=== PATIENT | male | born 1960 | race Caucasian/White ===

== ENCOUNTER 2017-12-05 11:35 | Emergency (ER) | payer MEDICARE, OTHER ==
[~2017-12-05] VITALS: Ht 198.1 cm; Wt 123.4 kg
[2017-12-05 11:35] VITALS: BP 141/91
[2017-12-05 12:11] LABS: BASO # 0.1 x10^3/uL (0.0-0.2); BASO % 1 % (0-3); EOS # 0.1 x10^3/uL (0.0-0.7); EOS % 2 % (0-3); HEMATOCRIT 41.9 % (39.0-53.0); HEMOGLOBIN 14.2 g/dL (13.0-17.5); LYMPH # 2.2 x10^3/uL (1.0-4.8); LYMPH % 26 % (24-48); MEAN CORPUSCULAR HEMOGLOBIN 29 pg (25-35); MEAN CORPUSCULAR HGB CONC 34 g/dL (31-37); MEAN CORPUSCULAR VOLUME 85 fL (79-100); MONO # 0.6 x10^3/uL (0.0-1.1); MONO % 8 % (0-9); NEUT # 5.3 x10^3uL (1.8-7.7); NEUT % 63 % (31-73); PLATELET COUNT 178 x10^3/uL (140-400); RED BLOOD COUNT 4.91 x10^6/uL (4.30-5.70); RED CELL DISTRIBUTION WIDTH 13.8 % (11.5-14.5); WHITE BLOOD COUNT 8.3 x10^3/uL (4.0-11.0)
[2017-12-05 12:18] LABS: ALBUMIN 3.4 g/dL (3.4-5.0); ALBUMIN/GLOBULIN RATIO 0.9 (1.0-1.7); CREATININE 0.9 mg/dL (0.7-1.3); GFR 87.6; TOTAL BILIRUBIN 0.2 mg/dL (0.2-1.0)
--- NOTE | 2017-12-05 12:20 | RAD ---
CT head without contrast 12/05/2017 Clinical indication: Syncope, head trauma. Comparison: None. Technique: Multiple CT images of the head were obtained without contrast according to standard protocol. Findings: No acute intracranial hemorrhage or extra-axial fluid collection. The ventricles and subarachnoid spaces are normal in size and configuration for age. No midline shift. The basal cisterns are patent. The visualized mastoid air cells are well aerated. There is an inferior left maxillary sinus mucosal retention cyst. Impression: No acute intracranial hemorrhage. PQRS Compliance Statement: One or more of the following individualized dose reduction techniques were utilized for this examination: 1. Automated exposure control 2. Adjustment of the mA and/or kV according to patient size 3. Use of iterative reconstruction technique
--- NOTE | 2017-12-05 12:24 | RAD ---
Portable chest, 12/05/2017: History: Syncope The heart size and pulmonary vascularity are normal. No pulmonary infiltrates are seen. There is no evidence of pleural fluid. IMPRESSION: No acute cardiopulmonary abnormality is detected.
--- NOTE | 2017-12-05 12:47 | EKG ---
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
[2017-12-05] MEDS: IV NORMAL SALINE 1,000ML 1,000 ML IV ONE (12:52)
[2017-12-05 13:40] LABS: BILIRUBIN,URINE NEG (NEG); CLARITY,URINE CLEAR; COLOR,URINE AMBER; GLUCOSE,URINE NEG (NEG)
[2017-12-05 13:41] LABS: AMPHETAMINE/METHAMPHETAMINE NEG (NEG); BACTERIA,URINE 0 /HPF (0-FEW); BARBITURATES POS (NEG); BENZODIAZEPINES NEG (NEG); CANNABINOIDS NEG (NEG); COCAINE NEG (NEG); METHADONE NEG (NEG); NITRITE,URINE NEG (NEG); OPIATES NEG (NEG); PHENCYCLIDINE NEG (NEG); SQUAMOUS EPITHELIAL CELL,UR OCC /LPF; UROBILINOGEN,URINE 0.2 mg/dL (0.2 mg/dL)
[2017-12-05] MEDS ORDERED: IOHEXOL 300 MG/ML 75 ML VIAL. ONE (14:39)
[2017-12-05] MEDS ORDERED: CONTRAST GIVEN MC PRN (14:45)
[2017-12-05] MEDS: IOHEXOL 300 MG/ML 75 ML VIAL. IV ONE (14:48)
--- NOTE | 2017-12-05 14:48 | RAD ---
CT head without contrast 12/05/2017 Clinical indication: Right upper extremity and right lower sternum the weakness. Comparison: CT head 12/05/2017 Technique: Multiple CT images of the head were obtained without contrast. PQRS Compliance Statement: One or more of the following individualized dose reduction techniques were utilized for this examination: 1. Automated exposure control 2. Adjustment of the mA and/or kV according to patient size 3. Use of iterative reconstruction technique Findings: No acute intracranial hemorrhage or extra-axial fluid collection. No midline shift. The andrade-white matter interfaces are maintained. The ventricles and subarachnoid spaces are normal in size and configuration. The visualized mastoid air cells and paranasal sinuses are well aerated. Impression: No acute intracranial hemorrhage or mass effect. These results were discussed with the emergency service by telephone at 2:45 PM 12/05/[address] Kavon Aguilera
--- NOTE | 2017-12-05 14:55 | PHYS DOC ---
Past History Past Medical History: Cancer Past Surgical History: Other Alcohol Use: None Drug Use: None Adult General Chief Complaint Chief Complaint: SYNCOPE HPI HPI Patient is a 56-year-old gentleman who has a history significant for chronic lower back pain, resting tremor, constipation, hyperlipidemia, BPH, COPD, tobacco abuse, depression, PTSD, vitamin D deficiency, who is status post a lumbar laminectomy secondary to lumbar spinal stenosis prior to June 13, 2017, presents to the ER today from [facility] after having a witnessed syncopal episode. Patient reports that while he was walking through [facility] he started to feel weak and dizzy and he knelt down to the ground started feeling more dizzy and then fell over with positive loss of consciousness to was witnessed by people at [facility]. Patient reports she's had no recent fevers shakes chills nausea vomiting diarrhea area patient reports he been eating and drinking well. Patient denies any chest pain or shortness of breath. Patient reports that he's had intermittent episodes of generalized weakness. Patient reports that he walks with a wrist pain secondary to pain and difficulty ambulating secondary to his chronic lower back pain. Patient reports baseline he is able to actively without any problems and able to drive himself to [facility]. Patient's initial evaluation the ER was unremarkable. Patient was alert awake oriented 3. Patient's neurological exam was nonfocal. Patient had 5 out of 5 upper and lower extremity strength. Patient had 5 out of 5 bilateral hand grasp , wrist flexion and extension, elbow flexion and extension, shoulder flexion and extension. Patient has 5 out of 5 hip knee and ankle flexion and extension bilaterally equal. Patient does report that he has intermittent episodes of weakness however upon evaluating the patient during his initial evaluation the patient not exhibiting any signs or symptoms of be consistent with weakness. Patient's ER workup is unremarkable with a normal CT scan of his head, normal CBC, CMP, EKG, chest x-ray. After long discussion with the patient the plan was to discharge him to home and have him follow-up with primary care physician for his syncopal episode. It was unclear whether or not the patient was dehydrated which caused him to feel dizzy get on his knees and passed out. Patient be given 1 L fluid and felt better and was plan to be discharged home. I had asked the patient to locate a family member to come pick him up so that we can discuss with him his follow-up. During this time. The patient got up grab his close and became fully dressed. Patient was able to put his shirt she was socks and pants on without difficulty. I went in to reevaluate the patient to see if we can watch him ambulate and he was unable to ambulate and at this time he reported that he has complete weakness loss of movement to his right upper and right lower extremity and feels like his speech is slurred. Patient's exam and presentation in the ED visit has remained inconsistent with periodic episodes of some motor function to his right upper extremity however the majority the time his right upper extremity did remain flaccid. He does withdraw slightly to painful stimuli to his right upper extremity. Patient's right lower extremity has remained flaccid and with inability to move. Patient does withdraw slightly to pain to his right lower extremity. Patient is otherwise alert awake and oriented 3. Patient is appropriate. Patient has no difficulty with word finding although his speech was seen more garbled than usual. Patient's cranial nerves to 12 intact. Patient has equal smile although when he relaxes he does have a right facial droop. Patient's tongue is midline. Patient's pupils are equally round and reactive to light. Extraocular motions were intact 1518: After discussion with [facility] in neurology and discussion with Dr. Zayas and Dr. palomares, it was recommended that we proceed with TPA given the patient's deficit. Patient has been accepted to transfer to [facility]. After discussion with Dr. Zayas I went to reevaluate the patient again and once again the patient now has complete flaccidity of his right upper extremity. Patient has waxing and waning of his symptoms which are extremely concerning. I had a long discussion with the patient regarding risks and benefits of TPA, he understands the benefit of TPA with improving the deficits from a stroke. Patient understands risks of TPA which includes hemorrhage, bleed , intracranial bleeding with worsening symptoms and possible , worsening strokes, worsening symptoms. Patient is currently agreeable to TPA. I have been discussed with the patient regarding any mental health issues in the past. Patient reports he does have a history of anger management which she just recently went to a course for. Patient denies any prior to her symptoms in the past. Review of systems: Constitutional: Denies fever or chills Eyes: Denies change in visual acuity, redness, or eye pain HENT: Denies nasal congestion or sore throat Respiratory: Denies cough or shortness of breath All other systems were reviewed and found to be within normal limits, except as documented in this note. Physical exam: Constitutional: Well developed, well nourished, no acute distress, non-toxic appearance. HENT: Normocephalic, atraumatic, bilateral external ears normal, nose normal. Eyes: PERRLA, EOMI, conjunctiva normal, no discharge. Neck: Normal range of motion, no tenderness, supple, no stridor. Cardiovascular: Heart rate regular rhythm, Lungs & Thorax: Bilateral breath sounds clear to auscultation Abdomen: No abdominal distention. Skin: Warm, dry, no erythema, no rash. Back: Normal spinal curvature Extremities: No tenderness, no cyanosis, no clubbing, ROM intact, no edema. Neurologic: Alert and oriented X 3, see above Psychologic: Affect normal, judgement normal, mood normal. Patient's ER physical exam was most remarkable: Waxing and waning episodes of right-sided weakness with slurring of speech waxes and wanes as well. EKG as interpreted by ER physician reveals: Normal sinus rhythm with nonspecific ST-T wave abnormalities. No evidence of STEMI. Chest x-ray as interpreted by ER physician reveals: No infiltrates or effusions. CT scan of the head 2 reveals no acute bleed pathology. Labs reviewed: Assessment and plan: 1. Syncope: Etiology unclear. Patient's ER workup is been unremarkable. Patient 's cardiac enzymes are negative CT scan did not reveal any acute pathology and EKG was normal. Patient normal CBC, CMP, troponin. 2. Acute stroke: Patient with waxing and waning episodes of weakness to his right upper and right lower extremities.. Although patient has waxing and waning symptoms, given the severity of symptoms when they do occur, after consultation with neurology from [facility], Dr. Zayas, it was felt that the patient would benefit from initiating TPA here and transferred to [facility] for further evaluation. Critical care time of 35 minutes reutilized and treatment and management of acute stroke symptoms and administration of of TPA. Current Medications Current Medications Current Medications Medications (Trade) Dose Ordered Sig/Carlota Start Time Stop Time Status Last Admin Dose Admin Sodium Chloride 1,000 ml @ 1,000 mls/hr 1X ONCE 12/05/17 11:45 12/05/17 12:57 DC 12/05/17 12:52 1,000 MLS/HR Allergies Allergies Allergies Coded Allergies Type Severity Reaction Last Updated Verified Penicillins Allergy Severe 12/05/17 Yes Sulfa (Sulfonamide Antibiotics) Allergy Unknown 12/05/17 Yes codeine Allergy Unknown 12/05/17 Yes Current Patient Data Vital Signs Vital Signs Date Time Temp Pulse Resp B/P (MAP) Pulse Ox O2 Delivery O2 Flow Rate FiO2 12/05/17 11:35 98.2 72 18 99 Room Air Lab Results Laboratory Tests Test 12/05/17 11:50 12/05/17 13:15 12/05/17 14:25 White Blood Count 8.3 x10^3/uL (4.0-11.0) Red Blood Count 4.91 x10^6/uL (4.30-5.70) Hemoglobin 14.2 g/dL (13.0-17.5) Hematocrit 41.9 % (39.0-53.0) Mean Corpuscular Volume 85 fL (79-100) Mean Corpuscular Hemoglobin 29 pg (25-35) Mean Corpuscular Hemoglobin Concent 34 g/dL (31-37) Red Cell Distribution Width 13.8 % (11.5-14.5) Platelet Count 178 x10^3/uL (140-400) Neutrophils (%) (Auto) 63 % (31-73) Lymphocytes (%) (Auto) 26 % (24-48) Monocytes (%) (Auto) 8 % (0-9) Eosinophils (%) (Auto) 2 % (0-3) Basophils (%) (Auto) 1 % (0-3) Neutrophils # (Auto) 5.3 x10^3uL (1.8-7.7) Lymphocytes # (Auto) 2.2 x10^3/uL (1.0-4.8) Monocytes # (Auto) 0.6 x10^3/uL (0.0-1.1) Eosinophils # (Auto) 0.1 x10^3/uL (0.0-0.7) Basophils # (Auto) 0.1 x10^3/uL (0.0-0.2) Sodium Level 141 mmol/L (136-145) Potassium Level 4.0 mmol/L (3.5-5.1) Chloride Level 105 mmol/L (98-107) Carbon Dioxide Level 26 mmol/L (21-32) Anion Gap 10 (6-14) Blood Urea Nitrogen 9 mg/dL (8-26) Creatinine 0.9 mg/dL (0.7-1.3) Estimated GFR (Cockcroft-Gault) 87.6 BUN/Creatinine Ratio 10 (6-20) Glucose Level 111 mg/dL (70-99) H Calcium Level 9.0 mg/dL (8.5-10.1) Total Bilirubin 0.2 mg/dL (0.2-1.0) Aspartate Amino Transferase (AST) 15 U/L (15-37) Alanine Aminotransferase (ALT) 23 U/L (16-63) Alkaline Phosphatase 93 U/L (46-116) Troponin I Quantitative 0.049 ng/mL (0-0.055) Total Protein 7.0 g/dL (6.4-8.2) Albumin 3.4 g/dL (3.4-5.0) Albumin/Globulin Ratio 0.9 (1.0-1.7) L Ethyl Alcohol Level < 10 mg/dL (0-10) Urine Collection Type Unknown Urine Color Edda Urine Clarity Clear Urine pH 6.5 Urine Specific [place] 1.010 Urine Protein Neg (NEG-TRACE) Urine Glucose (UA) Neg mg/dL (NEG) Urine Ketones (Stick) Trace mg/dL (NEG) Urine Blood Neg (NEG) Urine Nitrite Neg (NEG) Urine Bilirubin Neg (NEG) Urine Urobilinogen Dipstick 0.2 mg/dL (0.2 mg/dL) Urine Leukocyte Esterase Small (NEG) Urine RBC 1-2 /HPF (0-2) Urine WBC 5-10 /HPF (0-4) Urine Squamous Epithelial Cells Occ /LPF Urine Bacteria 0 /HPF (0-FEW) Urine Opiates Screen Neg (NEG) Urine Methadone Screen Neg (NEG) Urine Barbiturates Pos (NEG) Urine Phencyclidine Screen Neg (NEG) Urine Amphetamine/Methamphetamine Neg (NEG) Urine Benzodiazepines Screen Neg (NEG) Urine Cocaine Screen Neg (NEG) Urine Cannabinoids Screen Neg (NEG) Urine Ethyl Alcohol Neg (NEG) Glucose (Fingerstick) 92 mg/dL (70-99) EKG EKG [] Radiology/Procedures Radiology/Procedures [] Course & Med Decision Making Course & Med Decision Making Pertinent Labs and Imaging studies reviewed. (See chart for details) [] Dragon Disclaimer Dragon Disclaimer This electronic medical record was generated, in whole or in part, using a voice recognition dictation system. Departure Departure: Impression: Primary Impression: Syncope Additional Impression: Acute ischemic stroke Disposition: 05 XFER OTHER Condition: GUARDED Problem Qualifiers VICKY SIDHU MD Dec 05, 2017 14:55
[2017-12-05] MEDS: ALTEPLASE 9 MG IV ONE (15:15)
--- NOTE | 2017-12-05 15:20 | RAD ---
CTA head and neck with contrast 12/05/2017 Clinical indication: Right upper and lower extremity weakness. Comparison: CT head noncontrast 12/05/2017. Technique: Multiple CTA images of the head and neck were obtained following the intravenous administration of 75 mL Omnipaque 300. MIPS were obtained of the head and neck. RS Compliance Statement: One or more of the following individualized dose reduction techniques were utilized for this examination: 1. Automated exposure control 2. Adjustment of the mA and/or kV according to patient size 3. Use of iterative reconstruction technique Findings: CTA neck: There is conventional three-vessel arch anatomy with the origins of the great vessels patent. Right common carotid left common carotid arteries are patent. There is minimal eccentric calcified plaque at the left carotid bulb. Right carotid bulb and bilateral internal carotid arteries are patent without occlusion or high grade narrowing according to NASCET criteria. No evidence of dissection. The cervical portions of the vertebral arteries are patent. Moderate centrilobular and right paraseptal emphysema. Inferior left maxillary sinus mucosal retention cyst. There is multilevel cervical spondylosis including cervical disc degeneration with disc space narrowing, marginal osteophyte formation and multilevel posterior disc osteophyte complexes. CTA head: There is minimal eccentric calcified plaque of the distal right internal carotid artery without high-grade narrowing or occlusion. The proximal right cerebral, left middle cerebral, distal portions of the vertebrals, basilar, proximal posterior cerebral, proximal anterior cerebral arteries are patent without high-grade narrowing or occlusion. The bilateral posterior communicating arteries are hypoplastic or absent. There is a hypoplastic right transverse sinus, a normal variant. Impression: CTA neck: 1. Patent major cervical arteries without high-grade narrowing or occlusion. 2. Moderate pulmonary emphysema. CTA head: 1. Patent major intracranial arteries.
[2017-12-05] MEDS: ALTEPLASE 81 MG IV SCH (15:38)
[2017-12-05] MEDS ORDERED: IV NORMAL SALINE 50ML 50 ML IV ONE (15:45)
--- NOTE | 2017-12-06 00:16 | EKG ---
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
== END 2017-12-05 16:08 | disposition short-term general hospital (02) ==
LOC: ER 11:35
DX: R55 Syncope and collapse (principal); I63.9 Cerebral infarction, unspecified; E55.9 Vitamin D deficiency, unspecified; E78.5 Hyperlipidemia, unspecified; F32.9 Major depressive disorder, single episode, unspecified; G89.29 Other chronic pain; N40.0 Benign prostatic hyperplasia without lower urinary tract symptoms; J44.9 Chronic obstructive pulmonary disease, unspecified; Z88.0 Allergy status to penicillin; Z88.5 Allergy status to narcotic agent; Z88.2 Allergy status to sulfonamides
CPT/HCPCS: 36415; 37195; 70450; 70496; 70498; 71045; 80053; 80307; 81001; 82947; 84484; 85025; 87086; 93005; 96360; 99291; G0480; J2997; Q9967; G0479; J7030